=== PATIENT | female | born 1975 | race African-American/Black ===

== ENCOUNTER 2020-10-28 09:59 | Day surgery (SDC) | payer OTHER ==
[~2020-10-28] VITALS: Ht 165.1 cm; Wt 95.7 kg
[~2020-10-28 09:59] MED LIST: LR 1,000 ML IV ONE; SUMA50TA2 PO; TOPI1CAP4 PO
[2020-10-28 10:56] LABS: AMORPHOUS SEDIMENT SMALL (NEGATIVE); APPEARANCE, URINE CLOUDY (CLEAR); BACTERIA, URINE AUTO 1+ (NEGATIVE); BILIRUBIN, URINE AUTO NEGATIVE (NEGATIVE); BLOOD, URINE BLOOD NEGATIVE (NEGATIVE); COLOR, URINE YELLOW (YELLOW); GLUCOSE, URINE (UA) AUTO NEGATIVE (NEGATIVE); KETONE, URINE AUTO NEGATIVE (NEGATIVE); LEUKOCYTE ESTERASE, URINE AUTO NEGATIVE (NEGATIVE); MUCUS, URINE SMALL (NEGATIVE); NITRITE, URINE AUTO NEGATIVE (NEGATIVE); PROTEIN, URINE AUTO NEGATIVE (NEGATIVE); RBC, URINE AUTO 1 /HPF (0-3); SPECIFIC GRAVITY URINE AUTO 1.023 (1.002-1.035); SQUAMOUS EPITHELIAL CELL UR AU 6 /HPF (0-6); UROBILINOGEN, URINE AUTO 0.2 mg/dL (0.0-2.0); WBC, URINE AUTO 2 /HPF (0-3)
[2020-10-28 10:57] LABS: HEMATOCRIT 32.5 % (36.0-47.0); HEMOGLOBIN 10.3 g/dl (12.0-15.5); MEAN CORPUSCULAR HEMOGLOBIN 27.4 pg (27.0-33.0); MEAN CORPUSCULAR HGB CONC 31.7 g/dl (32.0-36.5); MEAN CORPUSCULAR VOLUME 86.4 fl (80.0-96.0); PLATELET COUNT, AUTOMATED 245 10^3/uL (150-450); RED BLOOD COUNT 3.76 10^6/uL (4.00-5.40); WHITE BLOOD COUNT 7.3 10^3/uL (4.0-10.0)
[2020-10-28] MEDS ORDERED: ONDANSETRON 4MG/2ML VIAL As Ordered ONE (11:44)
[2020-10-28] MEDS ORDERED: LIDOCAINE 2% 100MG/5ML SDV (FOR ANES.) As Ordered ONE (11:44)
[2020-10-28] MEDS ORDERED: METOCLOPRAMIDE INJ 10MG/2ML VIAL (J2765 PER 1) As Ordered ONE (11:44)
[2020-10-28] MEDS ORDERED: propofoL 200 MG/20 ML VIAL As Ordered ONE (11:44)
[2020-10-28] MEDS ORDERED: MIDAZOLAM INJ 2MG/2ML VIAL (J2250 PER 1MG) As Ordered ONE (11:45)
[2020-10-28] MEDS ORDERED: fentaNYL 100 MCG/2 ML INJECTION (J3010) As Ordered ONE (11:45)
[2020-10-28] MEDS ORDERED: KETOROLAC 60MG 2ML VIAL As Ordered ONE (12:45)
[2020-10-28] MEDS ORDERED: oxyCODONE 5MG TAB As Ordered ONE (13:33)
--- NOTE | 2020-10-28 13:44 | ROOPDOC ---
[facility] Report Of Operation Report of Operation DATE OF PROCEDURE: 10/28/20 PREPROCEDURE DIAGNOSES: 1. Abnormal uterine bleeding 2. Chronic iron-deficiency anemia POSTPROCEDURE DIAGNOSES: 1. Abnormal uterine bleeding 2. Chronic iron-deficiency anemia PROCEDURE: 1. Hysteroscopy 2. Dilation and Curettage 3. Removal and reinsertion of Mirena intrauterine device SURGEON: Ellen Mcclain DO BACKGROUND INVESTIGATOR: None ANESTHESIA: LMA ESTIMATED BLOOD LOSS: Approximately 15 mL. FLUIDS: 800ml URINE OUTPUT: none - patient voided prior to moving to operating room COMPLICATIONS: None FINDINGS: uterus sounded to 14cm. Large amount of thickened endometrium near the right cornua making the right tubal ostia unable to be visualized. Left tubal ostia visualized and normal-appearing. The Mirena IUD that was insitu was removed and noted to have string length of only 3cm concerning for location in the cervical canal. DESCRIPTION OF PROCEDURE: The risks, benefits, indications and alternatives of the procedure were reviewed with the patient and informed consent was obtained. The patient was taken to the operating room where LMA anesthesia was obtained without difficulty. The patient was then placed in the low lithotomy position using Ted Stirrups. An exam under anesthesia was then performed and significant for a midline, mobile, 12-week sized anteverted uterus with no adnexal masses/fullness appreciated. Patient was then prepped and draped in the sterile fashion and the bladder was drained by spontaneous void prior to moving to the operating room. A sterile speculum was placed in the patients vagina and the cervix was visualized. A single tooth tenaculum was used to grasp the anterior lip of the cervix. The intrauterine device stings were grasped with a ringed forceps and the device removed notably with very short strings concerning for intrauterine device location in the cervix. The uterus was sounded to 14cm. The cervix was then gently, serially dilated to a size 15 mary dilator. The hysteroscope was first primed. The hysteroscope was then advanced through the endocervical canal under direct visualization. After distension of the uterus with warm saline, a systematic examination of the intrauterine cavity was performed. The left tubal ostia were visualized but due to significant amount of endometrial tissue over the right ostia, unable to visualize. The uterine cavity was notable for an area of thickened endometrium over the right tubal ostia and anterior aspect of the endometrial cavity. A gentle, sharp curettage was then performed. All tissue was sent to pathology for review. The single tooth tenaculum was removed with sites appreciated to be hemostatic. The hysteroscope was re-advanced back into the endometrial cavity but due to obscuring blood, unable to visualize the ostia and the hysteroscope was removed. The Mirena intrauterine device was then placed per manufacturers protocol and the strings cut to 3cm length. All instruments were then removed from the patients vagina. Hysteroscopic fluid deficit was 100cc of normal saline. The patient tolerated the procedure well. At the completion of the case the sponge and needle counts were correct x 2. The patient was awoken from anesthesia and taken to the PACU in stable condition. ELLEN MCCLAIN DO Oct 28, 2020 13:44
[2020-10-28] MEDS ORDERED: fentaNYL 100 MCG/2 ML INJECTION (J3010) IV PRN (14:00)
[2020-10-28] MEDS ORDERED: LR 1,000 ML IV SCH (14:00)
[2020-10-28] MEDS ORDERED: METOCLOPRAMIDE INJ 10MG/2ML VIAL (J2765 PER 1) IV PRN (14:00)
[2020-10-28] MEDS ORDERED: MEPERIDINE INJ 25 MG/ML VIAL (J2175) IV PRN (14:00)
[2020-10-28] MEDS ORDERED: ONDANSETRON 4MG/2ML VIAL IV PRN (14:00)
[2020-10-28] MEDS ORDERED: oxyCODONE 5MG TAB PO PRN (14:00)
[2020-10-28 14:40] VITALS: BP 120/81
== END 2020-10-28 14:40 | disposition home or self-care (01) ==
LOC: M SDC 09:59
DX: C54.1 Malignant neoplasm of endometrium (principal); D50.9 Iron deficiency anemia, unspecified; G43.909 Migraine, unspecified, not intractable, without status migrainosus; Z79.899 Other long term (current) drug therapy; Z88.0 Allergy status to penicillin
CPT/HCPCS: 36415; 58300; 58301; 58558; 81001; 81025; 85027; 86850; 86900; 86901; 88300; 88305; J1885; J2250; J2405; J2765; J3010; J7298